=== PATIENT | female | born 1965 | race African-American/Black ===

== ENCOUNTER 2022-11-23 14:02 | Emergency (ER) | payer MEDICAID ==
[~2022-11-23] VITALS: Ht 165.1 cm; Wt 65.0 kg
[~2022-11-23 14:02] MED LIST: HYDR25TA PO; LOSA25TA26 PO
[2022-11-23 14:28] VITALS: BP 220/103
== END 2022-11-23 22:00 | disposition left against medical advice (07) ==
LOC: ER 14:02
DX: Z53.21 Procedure and treatment not carried out due to patient leaving prior to being seen by health care provider (principal); R53.1 Weakness
CPT/HCPCS: 99281